=== PATIENT | male | born 1955 | race Caucasian/White ===

== ENCOUNTER 2018-03-26 17:18 | Observation (INO) ==
--- NOTE | 2018-03-26 17:40 | ED ---
HPI General Chief Complaint: Stroke Alert Stated Complaint: partial lost of vision Time Seen by Provider: 03/26/18 17:25 Source: patient, family and EMS Mode of arrival: EMS Limitations: no limitations History of Present Illness HPI Narrative: The patient is a 63-year-old male with diabetes that was brought in as a stroke alert for left eye blurry vision. 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 He lives recently had Lasik surgery and was also diagnosed with diabetic retinopathy. Patient states that he woke up this morning and around 830 he noticed that his left eye was very blurry. He does wear corrective glasses and his vision was impaired even with the glasses on. He stated that it was persisted all day but by the time he was brought in here by EMS his symptoms have improved slightly. Patient denies any other complaints. His hemoglobin A1c is 7.8 and on arrival his glucose was elevated above 300. Stroke alert was initiated in the ED. Onset (ago): unknown Last Observed Normal: 23:00 Location: Reports other (left eye blurryness) History of same: No Severity: moderate Relieving factors: time Context: Reports sudden onset On Anticoagulants: No Associated symptoms: Reports denies other symptoms Treatments Prior to Arrival: Reports none Related Data Home Medications Medication Instructions Recorded Confirmed amlodipine 5 mg PO DAILY 03/26/18 03/26/18 aspirin 81 mg PO DAILY 03/26/18 03/26/18 atorvastatin 10 mg PO DAILY 03/26/18 03/26/18 glimepiride 2 mg PO QAM 03/26/18 03/26/18 metformin 1,000 mg PO BID 03/26/18 03/26/18 multivitamin 1 tab PO DAILY 03/26/18 03/26/18 om 0-I-dowzc-duc-zkvwl-cmj-lip 1 cap PO DAILY 03/26/18 03/26/18 [[place] 3-6-9] omeprazole 20 mg PO DAILY 03/26/18 03/26/18 Allergies Allergy/AdvReac Type Severity Reaction Status Date / Time prednisone Allergy Intermediate unknown Verified 03/26/18 17:36 Review of Systems ROS: all other systems reviewed are negative Eyes Reports other (blurry vision) PMFSH History History Provided By: Patient Medical History Medical History Anemia (Acute) Diabetes (Acute) Hx of completed stroke (Acute) Hyperlipidemia (Acute) Hypertension (Acute) Right sided numbness (Acute) Surgical History Surgical History History of bone marrow biopsy (Acute) History of carpal tunnel surgery (Acute) Family History Family History Other Diabetes mellitus Liver cancer Social History Social History Second Hand Smoke Exposure: No Smoking Status: Never smoker How Often Do You Have a Drink Containing Alcohol: 2 to 4 times a month Recent Travel in [facility] within the Last 8 Weeks: No Recent Out of Country Travel within the Last 8 Weeks: No Exam Narrative Exam Narrative: GENERAL: Alert and oriented in no distress. well nourished well developed SKIN: Focused skin assessment warm/dry. HEAD: Atraumatic. Normocephalic. EYES: Pupils equal and round. No scleral icterus. No injection or drainage. ENT: No nasal bleeding or discharge. Mucous membranes pink and moist. NECK: Trachea midline. No JVD. CARDIOVASCULAR: Regular rate and rhythm. No murmur appreciated. RESPIRATORY: No accessory muscle use. Clear to auscultation. Breath sounds equal bilaterally. GASTROINTESTINAL: Abdomen soft, non-tender, nondistended. Hepatic and splenic margins not palpable. MUSCULOSKELETAL: No obvious deformities. No clubbing. No cyanosis. No edema. PSYCHIATRIC: Appropriate mood and affect; insight and judgment normal. Neuro General: alert, awake and oriented x3 Course Consultations Consultation #1: Dr Carmona neurology on-call was notified recommends obtaining CT angio of head and neck as well as a dry CT head and call back with results if abnormal. Time: 17:35 Initial Documented Vital Signs Temperature 98.7 F 03/26/18 17:25 Pulse Rate 92 H 03/26/18 17:25 Respiratory Rate 15 03/26/18 17:25 Blood Pressure 212/100 H 03/26/18 17:25 Pulse Oximetry 100 03/26/18 17:25 Last Documented Vital Signs Temperature 98.7 F 03/26/18 17:25 Pulse Rate 79 03/27/18 06:16 Respiratory Rate 12 03/27/18 06:16 Blood Pressure 162/88 H 03/27/18 06:16 Pulse Oximetry 98 03/27/18 06:16 Critical Care Time Critical Care Time: Yes Total Critical Care Time: 30 Attestation: Aggregate critical care time was 30 minutes. Time to perform other separately billable procedures was not included in the critical care time. My time did not include minutes spent treating any other patients simultaneously or on activities that did not directly contribute to the patient's treatment. The services I provided to this patient were to treat and/or prevent clinically significant deterioration that could result in: Permanent disability and or I provided critical care services requiring my management, as noted below: Chart data review, documentation time, medication orders and management, vital sign assessments/reviewing monitor data, ordering and reviewing lab tests, ordering and interpreting/reviewing x-rays and diagnostic studies, care of the patient and discussion of the patient with the admitting physicians. NIH Stroke Scale NIHSS Time Completed NIHSS Time Completed: 17:30 NIH Stroke Scale Level of Consciousness: 0-Alert Orientation Questions: 0-Answers both correct Responds to Commands: 0-Both tasks correct Gaze Eye Movement: 0-Horizontal movement WNL Visual Gaming: 0-No visual field defect Facial Movement: 0-Normal Motor Functions Arm LEFT: 0-No drift Motor Functions Arm RIGHT: 0-No drift Motor Functions Leg LEFT: 0-No drift Motor Functions Leg RIGHT: 0-No drift Limb Ataxia: 0-No ataxia Sensory Loss: 0-No sensory loss Best Language: 0-Normal Articulation: 0-Normal Extinction or Inattention Sensory: 0-Absent Total: 0 Medical Decision Making MDM Narrative Medical decision making narrative: Patient with symptoms of visual disturbance on the left eye and negative for scans for acute intracranial process. His symptoms may be secondary to his diabetic retinopathy and the recent surgery that he had. Neurology was consulted. Stroke nurse coordinator present at bedside. Family aware of findings. Patient was admitted for further evaluation. Medical Screen Exam Complete: Yes Emergency Medical Condition: Yes Medical Records Medical records reviewed: Yes I reviewed the patient's medical records. Lab Data Lab results reviewed: Yes I reviewed the patient's lab results. Result diagrams: 03/26/18 17:30 03/26/18 17:30 Lab Results 03/26/18 03/26/18 03/26/18 Range/Units 17:30 17:30 17:30 WBC 8.1 (4.0-11.0) th/mm3 RBC 3.88 L (4.50-5.90) mil/mm3 Hgb 12.8 L (13.0-17.0) gm/dL POC Hgb (Calc) 12.6 L (13.0-17.0) g/dL Hct 36.6 L (39.0-51.0) % POC Hct 37.0 L (39-51.0) % MCV 94.3 (80.0-100.0) fL MCH 33.0 (27.0-34.0) pg MCHC 35.0 (32.0-36.0) % RDW 13.4 (11.6-17.2) % Plt Count 227 (150-450) th/mm3 MPV 10.3 (7.0-11.0) fL Neut % (Auto) 54.6 (16.0-70.0) % Lymph % (Auto) 28.4 (9.0-44.0) % [place] % (Auto) 13.1 H (0.0-8.0) % Eos % (Auto) 3.0 (0.0-4.0) % Baso % (Auto) 0.9 (0.0-2.0) % Neut # (Auto) 4.4 (1.8-7.7) th/mm3 Lymph # (Auto) 2.3 (1.0-4.8) th/mm3 [place] # (Auto) 1.1 H (0.0-0.9) th/mm3 Eos # (Auto) 0.2 (0.0-0.4) th/mm3 Baso # (Auto) 0.1 (0.0-0.2) th/mm3 WBC Differential . Differential Comment Auto diff final PT 10.2 (9.8-11.6) sec INR 1.0 Ratio APTT 24.1 (23.4-31.7) sec POC Sodium 144 (137-144) mmol/L Sodium 143 (136-145) meq/L POC Potassium 4.6 (3.6-5.0) mmol/L Potassium 4.5 (3.5-5.1) meq/L POC Chloride 105 (102-111) mmol/L Chloride 108 H (98-107) meq/L Carbon Dioxide 24.3 (21.0-32.0) meq/L Anion Gap 11 (5-15) meq/L POC BUN 27 H (5-21) mg/dL BUN 25 H (7-18) mg/dL Creatinine 1.36 H (0.60-1.30) mg/dL POC Creatinine 1.2 (0.6-1.3) mg/dL Estimated GFR 53 L (>89) mL/min POC Glucose 270 H (68-110) mg/dL Random Glucose 275 H (74-106) mg/dL Calcium 9.2 (8.5-10.1) mg/dL Total Creatine Kinase 127 (39-308) U/L CK-MB (CK-2) 5.0 H (0.5-3.6) ng/mL Troponin I Less than 0.02 L (0.02-0.05) ng/mL Imaging Data Radiologist's impression: Head MRI 03/26/18 00:00 CONCLUSION: 1. No evidence of acute stroke. 2. Small bilateral thalamic lacunar infarcts. Head MRA 03/26/18 00:00 CONCLUSION: 1. Negative MRA [place] ([place]) non contrast. Head CT 03/26/18 17:29 CONCLUSION: Multiple lacunar infarcts the left thalamus, likely old. No acute intracranial findings identified. Report was called by Dr. Fitzgerald to Dr. Cheng at [phone]. Head CTA 03/26/18 17:29 CONCLUSION: Focal atherosclerotic disease of the mid right SEAMER ELASTIC BAND. No proximal high-grade stenosis or occlusion. Report was called by Dr. Fitzgerald to Dr. Salguero at [phone]] Neck CTA 03/26/18 17:29 CONCLUSION: 1. Negative CTA of the carotids. ECG Data EKG Prior to Arrival: No Attestation: I personally reviewed and interpreted this ECG as follows: Interpretation: Sinus rhythm 85 bpm. Intraventricular conduction delay noted. VT interval 175 ms. QTc [address]-T wave abnormalities. No signs of acute ischemia. Discharge Plan Discharge Disposition Patient Disposition: 30 Still Patient Discharge Condition Condition: Stable Discharge Details Diagnosis: Transient cerebral ischemia, Diabetic retinopathy Physicians Team ED Provider: Sean Cheng Primary Care Provider: Primary Care Brie Markham Attending Provider: Karson Field Other Providers: Bakari Deng ; Luanne Murphy Discharge Interventions Interventions: Vital Signs Last Done: 03/26/18 19:06 Status ED Status: Admitted Observation Patient
[2018-03-26 17:41] VITALS: TEMP 98.7
--- NOTE | 2018-03-26 17:51 | CT ---
EXAM DATE: 03/26/2018 5:44 PM EST AGE/SEX: 63 years / Male INDICATIONS: Stroke alert, left eye blurriness. CLINICAL DATA: This is the patient's initial encounter. Patient reports that signs and symptoms have been present for 1 day and indicates a pain score of Nonresponsive. MEDICAL/SURGICAL HISTORY: Non-responsive. Non-responsive. RADIATION DOSE: 52.83 CTDI (mGy) COMPARISON: No prior exams available for comparison. TECHNIQUE: CT of the head without contrast. Using automated exposure control and adjustment of the mA and/or kV according to patient size, radiation dose was kept as low as reasonably achievable to ob tain optimal diagnostic quality images. DICOM format image data is available electronically for revi ew and comparison. FINDINGS: Cerebrum: Multiple lacunar infarcts in the left thalamus likely old. The ventricles are normal for a ge. No evidence of midline shift, mass lesion, hemorrhage or acute infarction. No extraaxial fluid collections are seen. Posterior Fossa: The cerebellum and brainstem are intact. The 4th ventricle is midline. The cerebe llopontine angle is unremarkable. Extracranial: The visualized portion of the orbits is intact. Skull: The calvaria is intact. No evidence of skull fracture. CONCLUSION: Multiple lacunar infarcts the left thalamus, likely old. No acute intracranial findings identified. Report was called by Dr. Fitzgerald to Dr. Cheng at [phone]. Electronically signed by: Keanu Fitzgerald MD 03/26/2018 5:50 PM EST
[2018-03-26] MEDS ORDERED: Aspirin 325 MG Tablet PO ONE (17:53)
[2018-03-26 18:10] LABS: Baso # (Auto) 0.1 th/mm3 (0.0-0.2); Baso % (Auto) 0.9 % (0.0-2.0); Eos # (Auto) 0.2 th/mm3 (0.0-0.4); Hematocrit 36.6 % (39.0-51.0); Hemoglobin 12.8 gm/dL (13.0-17.0); Lymph # (Auto) 2.3 th/mm3 (1.0-4.8); Lymph % (Auto) 28.4 % (9.0-44.0); Mean Corpuscular Volume 94.3 fL (80.0-100.0); Mean Platelet Volume 10.3 fL (7.0-11.0); Mono # (Auto) 1.1 th/mm3 (0.0-0.9); Mono % (Auto) 13.1 % (0.0-8.0); Neut # (Auto) 4.4 th/mm3 (1.8-7.7); Neut % (Auto) 54.6 % (16.0-70.0); Platelet Count 227 th/mm3 (150-450); Red Blood Count 3.88 mil/mm3 (4.50-5.90); Red Cell Distribution Width 13.4 % (11.6-17.2); White Blood Count 8.1 th/mm3 (4.0-11.0)
--- NOTE | 2018-03-26 18:18 | CT ---
EXAM DATE: 03/26/2018 6:04 PM EST AGE/SEX: 63 years / Male INDICATIONS: Stroke alert, left eye blurriness. CLINICAL DATA: This is the patient's initial encounter. Patient reports that signs and symptoms have been present for 1 day and indicates a pain score of Nonresponsive. MEDICAL/SURGICAL HISTORY: Non-responsive. Non-responsive. RADIATION DOSE: 9.74 CTDI (mGy) ; Combined studies COMPARISON: No prior exams available for comparison. TECHNIQUE: Volumetric scanning was performed using a multi-row detector CT scanner during bolus infu robert of 80 ml Visipaque 320 (iodixanol) nonionic water-soluble contrast as a cumulative dose for mul tiple exams. The data was post processed with a variety of visualization algorithms including full volume maximum intensity projection, multi-planar sliding thin slab reformation, curved planar reform ation, and surface rendering techniques. Using automated exposure control and adjustment of the mA a nd/or kV according to patient size, radiation dose was kept as low as reasonably achievable to obtain optimal diagnostic quality images. DICOM format image data is available electronically for review a nd comparison. FINDINGS: There is excellent visualization of the major intracranial arteries out to the second-order branch ve ssels. Focal atherosclerotic disease of the mid right GATE ATTENDANT. There is no evidence for aneurysm, vessel truncation or stenosis, and no evidence for vascular malformation. CONCLUSION: Focal atherosclerotic disease of the mid right GATE ATTENDANT. No proximal high-grade stenosis or occlusion. Report was called by Dr. Fitzgerald to Dr. Salguero at [phone]] Electronically signed by: Keanu Fitzgerald MD 03/26/2018 6:17 PM EST
[2018-03-26 18:21] LABS: Activated Partial Thrombo Time 24.1 sec (23.4-31.7); Prothrombin Time 10.2 sec (9.8-11.6)
[2018-03-26 18:46] LABS: Anion Gap 11 meq/L (5-15); Blood Urea Nitrogen 25 mg/dL (7-18); Calcium 9.2 mg/dL (8.5-10.1); Carbon Dioxide 24.3 meq/L (21.0-32.0); Chloride 108 meq/L (98-107); Glomerular Filtration Rate 53 mL/min (>89); Glucose,Random 275 mg/dL (74-106); Potassium 4.5 meq/L (3.5-5.1); Sodium 143 meq/L (136-145)
[2018-03-26 18:50] LABS: Creatine Kinase 127 U/L (39-308)
--- NOTE | 2018-03-26 19:08 | CT ---
EXAM DATE: 03/26/2018 6:45 PM EST AGE/SEX: 63 years / Male INDICATIONS: Stroke alert, left eye blurriness. CLINICAL DATA: This is the patient's initial encounter. Patient reports that signs and symptoms have been present for 1 day and indicates a pain score of Nonresponsive. MEDICAL/SURGICAL HISTORY: Non-responsive. Non-responsive. RADIATION DOSE: 9.74 CTDI (mGy) ; Combined studies COMPARISON: No prior exams available for comparison. TECHNIQUE: Volumetric scanning was performed using a multirow detector CT scanner during bolus infus ion of 80 ml Visipaque 320 (iodixanol) nonionic water-soluble contrast as a cumulative dose for mult iple exams. The data was postprocessed with a variety of visualization algorithms including full-vo lume maximum intensity projection, multiplanar sliding thin-slab reformation, curved-planar reformati on, and surface-rendering techniques. Using automated exposure control and adjustment of the mA and/ or kV according to patient size, radiation dose was kept as low as reasonably achievable to obtain op timal diagnostic quality images. DICOM format image data is available electronically for review and comparison. FINDINGS: Aortic Arch: There is a three-vessel origin of the great vessels from the aorta. No evidence of ost ial narrowing Right Carotid: The common carotid artery is intact. The carotid bulb has a normal configuration wit hout ulceration or narrowing. The internal carotid artery lumen is smooth without stenosis. The ext ernal carotid artery is intact. Left Carotid: The common carotid artery is intact. The carotid bulb has a normal configuration with out ulceration or narrowing. The internal carotid artery lumen is smooth without stenosis. The exte rnal carotid artery is intact. Vertebrals: The vertebral arteries have a symmetric diameter. No stenotic lesions are seen. Percent stenosis is calculated using the diameter of the stenotic region over the diameter of the nor mal distal internal carotid artery. CONCLUSION: 1. Negative CTA of the carotids. Electronically signed by: Hitesh Person MD 03/26/2018 7:07 PM EST
[2018-03-26] MEDS ORDERED: Dextrose 50% in Water 50 ML Vial IV.PUSH PRN (20:55)
--- NOTE | 2018-03-26 21:46 | P.HP ---
History of Present Illness Service: [facility] Primary Care Physician: No Primary Care Physician History of Present Illness: 63-year-old male with a past medical history significant for diabetes mellitus, previous CVA, hypertension, hyperlipidemia and anemia presents to the emergency department for the evaluation of visual disturbances. The patient reports that upon waking this morning he had difficulty seeing out of his left eye. He reports that it was as if a black curtain was obstructing his upper visual field. He also reports blurry vision in that eye. He has a history of diabetic retinopathy and is status post laser treatments and injections bilaterally, last completed on 02/18/18. The patient states the black curtain has lifted but complains of persistent blurriness. 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 He had no acute changes in strength today. No slurred speech. No facial droop. No fever/chills. No chest pain or shortness of breath. No abdominal pain. No nausea/vomiting/diarrhea. Review of Systems All other systems reviewed negative except as stated in HPI PMFSH - History History Provided By: Patient - Medical History Medical History: Medical History (Last Updated 03/26/18 @ 21:30 by Leena Blanco MD) Anemia Diabetes Hx of completed stroke Hyperlipidemia Hypertension Right sided numbness - Surgical History Surgical History: Surgical History (Last Updated 03/26/18 @ 21:30 by Leena Blanco MD) History of bone marrow biopsy History of carpal tunnel surgery - Family History Family History: Family History (Last Updated 03/26/18 @ 21:31 by Leena Blanco MD) Other Diabetes mellitus Liver cancer - Social History I have reviewed the patient's Social History: Yes - Tobacco History Second Hand Smoke Exposure: No Tobacco Use In Past 30 Days: No Smoking Status: Never smoker - Alcohol History How Often Do You Have a Drink Containing Alcohol: 2 to 4 times a month - Travel History Recent Travel in the [place] Within the Last 8 Weeks: No Recent Travel Out of the Country Within the Last 8 Weeks: No - Immunization History Tetanus Immunization: Unsure Medications and Allergies Active Medications: Active Medications Amlodipine Besylate (Norvasc) 5 mg PO DAILY PABLITO Aspirin (Aspirin) 325 mg PO DAILY PABLITO Atorvastatin Calcium (Lipitor) 10 mg PO DAILY PABLITO Dextrose (D50w Vial) 50 ml IV.PUSH UNSCH PRN PRN Reason: PER HYPOGLYCEMIA PROTOCOL Glucagon (Glucagon Inj) 1 mg OTHER PRN PRN PRN Reason: for Hypoglycemia Protocol Sodium Chloride (Ns Inj) 1,000 mls @ 70 mls/hr IV.CONT .[id number] PABLITO Insulin Aspart (Novolog Insulin Correctional Sugar Inj) 0 unit SQ ACHS PABLITO; Protocol Pantoprazole Sodium (Protonix) 20 mg PO DAILY PABLITO Sodium Chloride (Ns Flush) 2 ml IV.FLUSH PRN PRN PRN Reason: FLUSH AFTER USING IV ACCESS Allergies Allergy/AdvReac Type Severity Reaction Status Date / Time prednisone Allergy Intermediate unknown Verified 03/26/18 17:36 Home Medications Medication Instructions Recorded Confirmed Type amlodipine 5 mg PO DAILY 03/26/18 03/26/18 History aspirin 81 mg PO DAILY 03/26/18 03/26/18 History atorvastatin 10 mg PO DAILY 03/26/18 03/26/18 History glimepiride 2 mg PO QAM 03/26/18 03/26/18 History metformin 1,000 mg PO BID 03/26/18 03/26/18 History multivitamin 1 tab PO DAILY 03/26/18 03/26/18 History om 1-K-nxixh-ble-deduu-yca-lip 1 cap PO DAILY 03/26/18 03/26/18 History [[place] 3-6-9] omeprazole 20 mg PO DAILY 03/26/18 03/26/18 History Exam Vital signs: Vital Signs 03/26/18 17:25 03/26/18 17:35 03/26/18 17:42 Temperature 98.7 F Pulse Rate 92 H Respiratory Rate 15 Blood Pressure 212/100 H Pulse Oximetry 100 99 100 03/26/18 17:45 03/26/18 17:47 03/26/18 19:06 Temperature Pulse Rate 85 85 Respiratory Rate 15 20 Blood Pressure 139/76 172/81 H Pulse Oximetry 99 97 Intake & Output 03/26/18 03/26/18 03/27/18 06:59 18:59 06:59 Weight 84.9 kg Narrative: Gen.: No acute distress Head: Normocephalic. Atraumatic. EENT: Pupils equal round and reactive to light. Nose without drainage. Airway intact. Throat without injection. Cardiovascular: Regular rate and rhythm. No murmurs, rubs or gallops. Respiratory: Lungs clear to auscultation bilaterally. No wheezes or rhonchi. Abdomen: Soft, nontender, nondistended. No peritoneal signs. Musculoskeletal: No gross deformities. No edema. Skin: No obvious rashes or erythema. Neuro: Patient reports numbness/tingling in right upper and lower extremity. Cranial nerves II through XII intact. Strength 5/5. Results - Labs CBC & Chem 7: 03/26/18 17:30 03/26/18 17:30 Labs: Laboratory Results - last 24 hr 03/26/18 03/26/18 03/26/18 17:30 17:30 17:30 WBC 8.1 RBC 3.88 L Hgb 12.8 L POC Hgb (Calc) 12.6 L Hct 36.6 L POC Hct 37.0 L MCV 94.3 MCH 33.0 MCHC 35.0 RDW 13.4 Plt Count 227 MPV 10.3 Neut % (Auto) 54.6 Lymph % (Auto) 28.4 [place] % (Auto) 13.1 H Eos % (Auto) 3.0 Baso % (Auto) 0.9 Neut # (Auto) 4.4 Lymph # (Auto) 2.3 [place] # (Auto) 1.1 H Eos # (Auto) 0.2 Baso # (Auto) 0.1 WBC Differential . Differential Comment Auto diff final PT 10.2 INR 1.0 APTT 24.1 POC Sodium 144 Sodium 143 POC Potassium 4.6 Potassium 4.5 POC Chloride 105 Chloride 108 H Carbon Dioxide 24.3 Anion Gap 11 POC BUN 27 H BUN 25 H Creatinine 1.36 H POC Creatinine 1.2 Estimated GFR 53 L POC Glucose 270 H Random Glucose 275 H Calcium 9.2 Total Creatine Kinase 127 CK-MB (CK-2) 5.0 H Troponin I Less than 0.02 L - Imaging Impressions Head CT 03/26/18 17:29 CONCLUSION: Multiple lacunar infarcts the left thalamus, likely old. No acute intracranial findings identified. Report was called by Dr. Fitzgerald to Dr. Cheng at [phone]. Head CTA 03/26/18 17:29 CONCLUSION: Focal atherosclerotic disease of the mid right LOCKER PLANT ATTENDANT. No proximal high-grade stenosis or occlusion. Report was called by Dr. Fitzgerald to Dr. Salguero at [phone]] Neck CTA 03/26/18 17:29 CONCLUSION: 1. Negative CTA of the carotids. Caprini VTE Risk Assessment Caprini VTE Risk Assessment: Moderate/High Risk (score >= 2) Caprini Risk Assessment Model: Point Value = 1 Point Value = 2 Point Value = 3 Point Value = 5 Age 41-60 Minor surgery BMI > 25 kg/m2 Swollen legs Varicose veins or History of unexplained or recurrent spontaneous Oral contraceptives or hormone replacement Sepsis (< 1 month) Serious lung disease, including pneumonia (< 1 month) Abnormal pulmonary function Acute myocardial infarction Congestive heart failure (< 1 month) History of inflammatory bowel disease Medical patient at bed rest Age 61-74 Arthroscopic surgery Major open surgery (> 45 min) Laparoscopic surgery (> 45 min) Malignancy Confined to bed (> 72 hours) Immobilizing plaster cast Central venous access Age >= 75 History of VTE Family history of VTE Factor V Leiden Prothrombin [id number] Lupus anticoagulant Anticardiolipin antibodies Elevated serum homocysteine Heparin-induced thrombocytopenia Other congenital or acquired thrombophilia Stroke (< 1 month) Elective arthroplasty Hip, pelvis, or leg fracture Acute spinal cord injury (< 1 month) Prophylaxis Regimen: Total Risk Factor Score Risk Level Prophylaxis Regimen 0-1 Low Early ambulation 2 Moderate Order ONE of the following: *Sequential Compression Device (SCD) *Heparin 5000 units SQ BID 3-4 Higher Order ONE of the following medications: *Heparin 5000 units SQ TID *Enoxaparin/Lovenox 40 mg SQ daily (WT < 150 kg, CrCl > 30 mL/min) *Enoxaparin/Lovenox 30 mg SQ daily (WT < 150 kg, CrCl > 10-29 mL/min) *Enoxaparin/Lovenox 30 mg SQ BID (WT < 150 kg, CrCl > 30 mL/min) AND/OR *Sequential Compression Device (SCD) 5 or more Highest Order ONE of the following medications: *Heparin 5000 units SQ TID (Preferred with Epidurals) *Enoxaparin/Lovenox 40 mg SQ daily (WT < 150 kg, CrCl > 30 mL/min) *Enoxaparin/Lovenox 30 mg SQ daily (WT < 150 kg, CrCl > 10-29 mL/min) *Enoxaparin/Lovenox 30 mg SQ BID (WT < 150 kg, CrCl > 30 mL/min) AND *Sequential Compression Device (SCD) Assessment and Plan - Plan Assessment/Plan: 1. Visual disturbance/history of CVA Head CT showed multiple old lacunar infarcts in the left thalamus without acute intracranial findings Head CTA shows focal atherosclerotic disease of the mid right LOCKER PLANT ATTENDANT without high- grade stenosis or occlusion Neck CTA negative MRI pending Neurology consulted, appreciate recommendations Ophthalmology consulted Aspirin 2. Diabetes mellitus Holding home glimepiride and metformin Sliding-scale insulin Monitor blood glucose 3. Hypertension/hyperlipidemia Continue home medications 4. Renal insufficiency Patient reports that recent lab work with his primary care provider showed a new renal insufficiency Creatinine 1.36, no recent baseline for comparison Monitor renal function FEN N.p.o. Electrolytes: Monitor and replete as needed NS at 70 cc/hour
--- NOTE | 2018-03-26 21:47 | MR ---
EXAM DATE: 03/26/2018 9:40 PM EST AGE/SEX: 63 years / Male INDICATIONS: TIA. Left eye weakness. CLINICAL DATA: This is the patient's initial encounter. Patient reports that signs and symptoms have been present for 1 day and indicates a pain score of 1/10. MEDICAL/SURGICAL HISTORY: Hypertension. Prior stroke that caused right side weakness/tingling. . Eye sx, Wrist sx. COMPARISON: No prior exams available for comparison. TECHNIQUE: 3D trap-sd-nghepo MRA was performed. Source images, multiplanar STS MIP, and 3D volum e MIP reconstructions were reviewed. FINDINGS: There is excellent visualization of the major intracranial arteries out to the second-order branch ve ssels. There is no evidence for aneurysm, vessel truncation or stenosis, and no evidence for vascula r malformation. CONCLUSION: 1. Negative MRA [place] ([place]) non contrast. Electronically signed by: Garrett Morales MD 03/26/2018 9:46 PM EST
--- NOTE | 2018-03-26 21:47 | MR ---
EXAM DATE: 03/26/2018 9:42 PM EST AGE/SEX: 63 years / Male INDICATIONS: TIA. Left eye weakness. CLINICAL DATA: This is the patient's initial encounter. Patient reports that signs and symptoms have been present for 1 day and indicates a pain score of 1/10. MEDICAL/SURGICAL HISTORY: Hypertension. Prior stroke that caused right sided numbness. . Eye s x, Wrist sx. COMPARISON: No prior exams available for comparison. TECHNIQUE: Multiplanar, multisequence examination of the brain was performed without contrast. FINDINGS: Cerebrum: The ventricles are normal for age. No evidence of midline shift, mass lesion, hemorrhage or acute infarction. Small lacunar infarcts in the thalamus bilaterally. No extraaxial fluid collect ions are seen. The pituitary gland and suprasellar cistern are normal in configuration. White Matter: No significant signal abnormalities are seen in the white matter. Posterior Fossa: The cerebellum and brainstem are intact. The 4th ventricle is midline. The cerebel lopontine angle is unremarkable. The cerebellar tonsils are normal in position. Diffusion Imaging: No focal areas of restricted diffusion are seen. No evidence of acute infarction . Extracranial: The visualized portions of the orbits and paranasal sinuses are unremarkable. CONCLUSION: 1. No evidence of acute stroke. 2. Small bilateral thalamic lacunar infarcts. Electronically signed by: Hitesh Person MD 03/26/2018 9:46 PM EST
[2018-03-26] MEDS: Sod Chloride 0.9% Inj 1,000 ML IV.CONT SCH (23:31)
[2018-03-27] MEDS: Insulin NovoLOG Aspart Correctional Sugar Inj SQ SCH ×3 (01:38→12:57)
--- NOTE | 2018-03-27 06:58 | P.CONNEU ---
History of Present Illness Service: Neurology Primary Care Provider: No Primary Care Physician [facility] - History History Provided By: Patient - Medical History Medical History: Medical History (Last Updated 03/26/18 @ 21:30 by Leena Blanco MD) Anemia Diabetes Hx of completed stroke Hyperlipidemia Hypertension Right sided numbness - Surgical History Surgical History: Surgical History (Last Updated 03/26/18 @ 21:30 by Leena Blanco MD) History of bone marrow biopsy History of carpal tunnel surgery - Family History Family History: Family History (Last Updated 03/26/18 @ 21:31 by Leena Blanco MD) Other Diabetes mellitus Liver cancer - Tobacco History Second Hand Smoke Exposure: No Tobacco Use In Past 30 Days: No Smoking Status: Never smoker - Alcohol History How Often Do You Have a Drink Containing Alcohol: 2 to 4 times a month - Travel History Recent Travel in the [facility] Within the Last 8 Weeks: No Recent Travel Out of the Country Within the Last 8 Weeks: No - Immunization History Tetanus Immunization: Unsure Medications and Allergies Active Medications: Active Medications Amlodipine Besylate (Norvasc) 5 mg PO DAILY [facility] Aspirin (Aspirin) 325 mg PO DAILY [facility] Atorvastatin Calcium (Lipitor) 10 mg PO DAILY [facility] Dextrose (D50w Vial) 50 ml IV.PUSH UNSCH PRN PRN Reason: PER HYPOGLYCEMIA PROTOCOL Glucagon (Glucagon Inj) 1 mg OTHER PRN PRN PRN Reason: for Hypoglycemia Protocol Sodium Chloride (Ns Inj) 1,000 mls @ 70 mls/hr IV.CONT .[id number] [facility] Last Admin: 03/26/18 23:31 Dose: 70 mls/hr Insulin Aspart (Novolog Insulin Correctional Sugar Inj) 0 unit SQ ACHS [facility]; Protocol Last Admin: 03/27/18 01:38 Dose: Not Given Pantoprazole Sodium (Protonix) 20 mg PO DAILY [facility] Sodium Chloride (Ns Flush) 2 ml IV.FLUSH PRN PRN PRN Reason: FLUSH AFTER USING IV ACCESS Allergies Allergy/AdvReac Type Severity Reaction Status Date / Time prednisone Allergy Intermediate unknown Verified 03/26/18 17:36 Home Medications Medication Instructions Recorded Confirmed Type amlodipine 5 mg PO DAILY 03/26/18 03/26/18 History aspirin 81 mg PO DAILY 03/26/18 03/26/18 History atorvastatin 10 mg PO DAILY 03/26/18 03/26/18 History glimepiride 2 mg PO QAM 03/26/18 03/26/18 History metformin 1,000 mg PO BID 03/26/18 03/26/18 History multivitamin 1 tab PO DAILY 03/26/18 03/26/18 History om 2-Q-duqwm-pcd-oclbi-enj-lip 1 cap PO DAILY 03/26/18 03/26/18 History [[place] 3-6-9] omeprazole 20 mg PO DAILY 03/26/18 03/26/18 History Exam Vital signs: Vital Signs 03/26/18 17:25 03/26/18 17:35 03/26/18 17:42 Temperature 98.7 F Pulse Rate 92 H Respiratory Rate 15 Blood Pressure 212/100 H Pulse Oximetry 100 99 100 03/26/18 17:45 03/26/18 17:47 03/26/18 19:06 Temperature Pulse Rate 85 85 Respiratory Rate 15 20 Blood Pressure 139/76 172/81 H Pulse Oximetry 99 97 03/26/18 23:31 03/27/18 02:47 03/27/18 06:16 Temperature Pulse Rate 85 79 Respiratory Rate 16 12 Blood Pressure 146/82 H 162/88 H Pulse Oximetry 98 97 98 Intake & Output 03/26/18 03/26/18 03/27/18 06:59 18:59 06:59 Weight 84.9 kg Results - Labs CBC & Chem 7: 03/26/18 17:30 03/26/18 17:30 Labs: Laboratory Results - last 24 hr 03/26/18 03/26/18 03/26/18 17:30 17:30 17:30 WBC 8.1 RBC 3.88 L Hgb 12.8 L POC Hgb (Calc) 12.6 L Hct 36.6 L POC Hct 37.0 L MCV 94.3 MCH 33.0 MCHC 35.0 RDW 13.4 Plt Count 227 MPV 10.3 Neut % (Auto) 54.6 Lymph % (Auto) 28.4 [place] % (Auto) 13.1 H Eos % (Auto) 3.0 Baso % (Auto) 0.9 Neut # (Auto) 4.4 Lymph # (Auto) 2.3 [place] # (Auto) 1.1 H Eos # (Auto) 0.2 Baso # (Auto) 0.1 WBC Differential . Differential Comment Auto diff final PT 10.2 INR 1.0 APTT 24.1 POC Sodium 144 Sodium 143 POC Potassium 4.6 Potassium 4.5 POC Chloride 105 Chloride 108 H Carbon Dioxide 24.3 Anion Gap 11 POC BUN 27 H BUN 25 H Creatinine 1.36 H POC Creatinine 1.2 Estimated GFR 53 L POC Glucose 270 H Random Glucose 275 H Calcium 9.2 Total Creatine Kinase 127 CK-MB (CK-2) 5.0 H Troponin I Less than 0.02 L - Imaging Impressions Head MRI 03/26/18 00:00 CONCLUSION: 1. No evidence of acute stroke. 2. Small bilateral thalamic lacunar infarcts. Head MRA 03/26/18 00:00 CONCLUSION: 1. Negative MRA Cow ([place] [facility] [place]) non contrast. Head CT 03/26/18 17:29 CONCLUSION: Multiple lacunar infarcts the left thalamus, likely old. No acute intracranial findings identified. Report was called by Dr. Fitzgerald to Dr. Cheng at 1747. Head CTA 03/26/18 17:29 CONCLUSION: Focal atherosclerotic disease of the mid right TABLE FILLER. No proximal high-grade stenosis or occlusion. Report was called by Dr. Fitzgerald to Dr. Salguero at [phone]] Neck CTA 03/26/18 17:29 CONCLUSION: 1. Negative CTA of the carotids. Review/Management - Diagnosis (1) Diabetic retinopathy Code(s): E11.319 - Type 2 diabetes mellitus with unspecified diabetic retinopathy without macular edema Status: Acute Current Visit: Yes - Review/Management Plan: dm retinopathy stroke w/u negative for acute stroke recs optho eval stroke risk factor reduction d/c from neuro
[2018-03-27 07:45] LABS: Baso # (Auto) 0.1 th/mm3 (0.0-0.2); Baso % (Auto) 1.2 % (0.0-2.0); Eos # (Auto) 0.3 th/mm3 (0.0-0.4); Hematocrit 33.1 % (39.0-51.0); Hemoglobin 11.4 gm/dL (13.0-17.0); Lymph # (Auto) 2.4 th/mm3 (1.0-4.8); Lymph % (Auto) 29.3 % (9.0-44.0); Mean Corpuscular HGB Conc 34.5 % (32.0-36.0); Mean Corpuscular Hemoglobin 32.2 pg (27.0-34.0); Mean Corpuscular Volume 93.3 fL (80.0-100.0); Mean Platelet Volume 10.1 fL (7.0-11.0); Mono # (Auto) 1.1 th/mm3 (0.0-0.9); Mono % (Auto) 13.6 % (0.0-8.0); Neut # (Auto) 4.2 th/mm3 (1.8-7.7); Neut % (Auto) 51.9 % (16.0-70.0); Platelet Count 202 th/mm3 (150-450); Red Blood Count 3.55 mil/mm3 (4.50-5.90); Red Cell Distribution Width 13.7 % (11.6-17.2); White Blood Count 8.1 th/mm3 (4.0-11.0)
[2018-03-27 07:56] VITALS: RESP 18
[2018-03-27 08:02] LABS: Calcium 8.3 mg/dL (8.5-10.1); Carbon Dioxide 25.1 meq/L (21.0-32.0); Potassium 4.2 meq/L (3.5-5.1)
[2018-03-27 08:06] LABS: Chol/HDL Ratio 4.53 Ratio; HDL Cholesterol 33.1 mg/dL (40.0-60.0)
[2018-03-27] MEDS ORDERED: Pantoprazole Sodium 20 MG DR Tablet PO SCH (09:00)
[2018-03-27] MEDS ORDERED: Aspirin 325 MG Tablet PO SCH (09:00)
[2018-03-27] MEDS ORDERED: amLODIPine 5 MG Tablet PO SCH (09:00)
--- NOTE | 2018-03-27 09:18 | P.PN ---
Subjective Interval history: follow up for TIA: pt. seen and examined, awake, alert oriented x3. Left eye upper vision field loss resolved. No double vision, no dizziness, no headache. No focal deficits. Blood pressure stable. Physical Exam Vital signs: Vital Signs 03/26/18 17:25 03/26/18 17:35 03/26/18 17:42 Temperature 98.7 F Pulse Rate 92 H Respiratory Rate 15 Blood Pressure 212/100 H Pulse Oximetry 100 99 100 03/26/18 17:45 03/26/18 17:47 03/26/18 19:06 Temperature Pulse Rate 85 85 Respiratory Rate 15 20 Blood Pressure 139/76 172/81 H Pulse Oximetry 99 97 03/26/18 23:31 03/27/18 02:47 03/27/18 06:16 Temperature Pulse Rate 85 79 Respiratory Rate 16 12 Blood Pressure 146/82 H 162/88 H Pulse Oximetry 98 97 98 03/27/18 07:53 Temperature Pulse Rate 79 Respiratory Rate 18 Blood Pressure 147/76 H Pulse Oximetry 98 Intake & Output 03/26/18 03/27/18 03/27/18 18:59 06:59 18:59 Weight 84.9 kg Narrative: Gen.: No acute distress Head: Normocephalic. Atraumatic. EENT: Pupils equal round and reactive to light. Nose without drainage. Airway intact. Throat without injection. Cardiovascular: Regular rate and rhythm. No murmurs, rubs or gallops. Respiratory: Lungs clear to auscultation bilaterally. No wheezes or rhonchi. Abdomen: Soft, nontender, nondistended. No peritoneal signs. Musculoskeletal: No gross deformities. No edema. Skin: No obvious rashes or erythema. Neuro: Awake, alert oriented x3. No focal deficits. Bilateral upper and lower extremity strength 5 out of 5. Results - Labs CBC & Chem 7: 03/27/18 07:16 03/27/18 07:16 Laboratory Results - last 24 hr 03/26/18 03/26/18 03/26/18 17:30 17:30 17:30 WBC 8.1 RBC 3.88 L Hgb 12.8 L POC Hgb (Calc) 12.6 L Hct 36.6 L POC Hct 37.0 L MCV 94.3 MCH 33.0 MCHC 35.0 RDW 13.4 Plt Count 227 MPV 10.3 Neut % (Auto) 54.6 Lymph % (Auto) 28.4 [place] % (Auto) 13.1 H Eos % (Auto) 3.0 Baso % (Auto) 0.9 Neut # (Auto) 4.4 Lymph # (Auto) 2.3 [place] # (Auto) 1.1 H Eos # (Auto) 0.2 Baso # (Auto) 0.1 WBC Differential . Differential Comment Auto diff final ESR PT 10.2 INR 1.0 APTT 24.1 POC Sodium 144 Sodium 143 POC Potassium 4.6 Potassium 4.5 POC Chloride 105 Chloride 108 H Carbon Dioxide 24.3 Anion Gap 11 POC BUN 27 H BUN 25 H Creatinine 1.36 H POC Creatinine 1.2 Estimated GFR 53 L POC Glucose 270 H Random Glucose 275 H Calcium 9.2 Total Creatine Kinase 127 CK-MB (CK-2) 5.0 H Troponin I Less than 0.02 L C-Reactive Protein Triglycerides Cholesterol LDL Cholesterol, Calc HDL Cholesterol Cholesterol/HDL Ratio 03/27/18 03/27/18 03/27/18 07:16 07:16 07:16 WBC 8.1 RBC 3.55 L Hgb 11.4 L POC Hgb (Calc) Hct 33.1 L POC Hct MCV 93.3 MCH 32.2 MCHC 34.5 RDW 13.7 Plt Count 202 MPV 10.1 Neut % (Auto) 51.9 Lymph % (Auto) 29.3 [place] % (Auto) 13.6 H Eos % (Auto) 4.0 Baso % (Auto) 1.2 Neut # (Auto) 4.2 Lymph # (Auto) 2.4 [place] # (Auto) 1.1 H Eos # (Auto) 0.3 Baso # (Auto) 0.1 WBC Differential . Differential Comment Auto diff final ESR 36 H PT INR APTT POC Sodium Sodium 141 POC Potassium Potassium 4.2 POC Chloride Chloride 108 H Carbon Dioxide 25.1 Anion Gap 8 POC BUN BUN 23 H Creatinine 1.19 POC Creatinine Estimated GFR 62 L POC Glucose Random Glucose 160 H D Calcium 8.3 L D Total Creatine Kinase CK-MB (CK-2) Troponin I C-Reactive Protein Triglycerides 238 H Cholesterol 150 LDL Cholesterol, Calc 69 HDL Cholesterol 33.1 L Cholesterol/HDL Ratio 4.53 03/27/18 07:16 WBC RBC Hgb POC Hgb (Calc) Hct POC Hct MCV MCH MCHC RDW Plt Count MPV Neut % (Auto) Lymph % (Auto) [place] % (Auto) Eos % (Auto) Baso % (Auto) Neut # (Auto) Lymph # (Auto) [place] # (Auto) Eos # (Auto) Baso # (Auto) WBC Differential Differential Comment ESR PT INR APTT POC Sodium Sodium POC Potassium Potassium POC Chloride Chloride Carbon Dioxide Anion Gap POC BUN BUN Creatinine POC Creatinine Estimated GFR POC Glucose Random Glucose Calcium Total Creatine Kinase CK-MB (CK-2) Troponin I C-Reactive Protein 0.53 H Triglycerides Cholesterol LDL Cholesterol, Calc HDL Cholesterol Cholesterol/HDL Ratio - Imaging Impressions Head MRI 03/26/18 00:00 CONCLUSION: 1. No evidence of acute stroke. 2. Small bilateral thalamic lacunar infarcts. Head MRA 03/26/18 00:00 CONCLUSION: 1. Negative MRA Cow ([place]) non contrast. Head CT 03/26/18 17:29 CONCLUSION: Multiple lacunar infarcts the left thalamus, likely old. No acute intracranial findings identified. Report was called by Dr. Fitzgerald to Dr. Cheng at [phone]. Head CTA 03/26/18 17:29 CONCLUSION: Focal atherosclerotic disease of the mid right PE TEACHER. No proximal high-grade stenosis or occlusion. Report was called by Dr. Fitzgerald to Dr. Salguero at [phone]] Neck CTA 03/26/18 17:29 CONCLUSION: 1. Negative CTA of the carotids. Assessment and Plan - Assessment (1) Transient cerebral ischemia Code(s): G45.9 - Transient cerebral ischemic attack, unspecified Status: Acute (2) Amaurosis fugax of left eye Code(s): G45.3 - Amaurosis fugax Status: Acute - Plan 63-year-old male with a past medical history significant for diabetes mellitus, previous CVA, hypertension, hyperlipidemia and anemia presents to the emergency department for the evaluation of visual disturbances. The patient reports that upon waking yesterday he had difficulty seeing out of his left eye. He reports that it was as if a black curtain was obstructing his upper visual field. He also reports blurry vision in that eye. He has a history of diabetic retinopathy and is status post laser treatments and injections bilaterally, last completed on 02/18/18. The patient states the black curtain had lifted but complains of persistent blurriness. He has residual right-sided hand rn cardiac rehab strength weakness and numbness/tingling in the right upper and lower extremities from his previous CVA. Visual disturbance/history of CVA Head CT showed multiple old lacunar infarcts in the left thalamus without acute intracranial findings Head CTA shows focal atherosclerotic disease of the mid right PE TEACHER without high- grade stenosis or occlusion Neck CTA negative MRI small bilateral thalamic lacunar infarcts. Echo done EF 55-60% Lipid profile noted HgbA1c pending -Neurology consulted, appreciate recommendations. No acute stroke, recommends ophthalmology consult and risk factor reduction -Ophthalmology consulted-pending -continue Aspirin and statins -PT eval Diabetes mellitus -Holding home glimepiride and metformin -Sliding-scale insulin -Monitor blood glucose Hypertension/hyperlipidemia -continue home medications Renal insufficiency Patient reports that recent lab work with his primary care provider showed a new renal insufficiency Creatinine 1.36, no recent baseline for comparison -Monitor renal function -control risk factors, avoid nephrotoxic agents. Resume diabetic Symptoms resolved. Plan to dc today after evaluation by ophthalmology Code Status: Full code Discussed Condition With: RN, pt and , CM Discharge Planning: Poss dc today after neuro and ophth clears (1) Transient cerebral ischemia Qualifiers: Transient cerebral ischemia type: unspecified Qualified Code(s): G45.9 - Transient cerebral ischemic attack, unspecified
[2018-03-27 11:43] VITALS: O2SAT 97
[2018-03-27] MEDS: Sod Chloride 0.9% Inj 1,000 ML IV.CONT SCH (11:48)
--- NOTE | 2018-03-27 12:15 | P.CON ---
History of Present Illness Service: Ophthalmology Reason for Consult: transient vision loss OS Primary Care Provider: No Primary Care Physician History of Present Illness: 63-year-old male with a past medical history of diabetes mellitus, previous CVA , hypertension, hyperlipidemia presents to the ED for the evaluation of visual changes in the left eye. The patient reports that upon waking up yesterday morning he had difficulty seeing out of the top half of the left eye. He reports that it was as if a black curtain was obstructing his upper visual field. It gradually improved as the day progressed and today he states he is back to his baseline. is well known to me, as he is a patient of mine in my office - he has a history of severe proliferative diabetic retinopathy and has had multiple laser treatments and injections bilaterally by [facility] - Dr. Ramiro Weller). MRI head showed old lacunar infarcts, MRA head normal, CTA neck normal. [facility] - History History Provided By: Patient - Medical History Medical History: Medical History (Last Reviewed 03/27/18 @ 10:54 by Axel Schwartz) Anemia Diabetes Hx of completed stroke Hyperlipidemia Hypertension Right sided numbness - Surgical History Surgical History: Surgical History (Last Reviewed 03/27/18 @ 10:54 by Axel Schwartz) History of bone marrow biopsy History of carpal tunnel surgery - Family History Family History: Family History (Last Reviewed 03/27/18 @ 07:42 by Sean Cheng DO) Other Diabetes mellitus Liver cancer - Tobacco History Second Hand Smoke Exposure: No Tobacco Use In Past 30 Days: No Smoking Status: Never smoker - Alcohol History How Often Do You Have a Drink Containing Alcohol: 2 to 4 times a month - Travel History Recent Travel in the [place] Within the Last 8 Weeks: No Recent Travel Out of the Country Within the Last 8 Weeks: No - Immunization History Tetanus Immunization: Unsure Medications and Allergies Active Medications: Active Medications Amlodipine Besylate (Norvasc) 5 mg PO DAILY [facility] Last Admin: 03/27/18 09:18 Dose: 5 mg Aspirin (Aspirin) 325 mg PO DAILY [facility] Last Admin: 03/27/18 08:56 Dose: 325 mg Atorvastatin Calcium (Lipitor) 10 mg PO DAILY [facility] Last Admin: 03/27/18 09:18 Dose: 10 mg Dextrose (D50w Vial) 50 ml IV.PUSH UNSCH PRN PRN Reason: PER HYPOGLYCEMIA PROTOCOL Glucagon (Glucagon Inj) 1 mg OTHER PRN PRN PRN Reason: for Hypoglycemia Protocol Sodium Chloride (Ns Inj) 1,000 mls @ 70 mls/hr IV.CONT .[id number] [facility] Last Admin: 03/27/18 11:48 Dose: 70 mls/hr Insulin Aspart (Novolog Insulin Correctional Sugar Inj) 0 unit SQ ACHS [facility]; Protocol Last Admin: 03/27/18 08:53 Dose: 1 unit Pantoprazole Sodium (Protonix) 20 mg PO DAILY [facility] Last Admin: 03/27/18 08:56 Dose: 20 mg Sodium Chloride (Ns Flush) 2 ml IV.FLUSH PRN PRN PRN Reason: FLUSH AFTER USING IV ACCESS Allergies Allergy/AdvReac Type Severity Reaction Status Date / Time prednisone Allergy Intermediate unknown Verified 03/26/18 17:36 Home Medications Medication Instructions Recorded Confirmed Type amlodipine 5 mg PO DAILY 03/26/18 03/26/18 History aspirin 81 mg PO DAILY 03/26/18 03/26/18 History atorvastatin 10 mg PO DAILY 03/26/18 03/26/18 History glimepiride 2 mg PO QAM 03/26/18 03/26/18 History metformin 1,000 mg PO BID 03/26/18 03/26/18 History multivitamin 1 tab PO DAILY 03/26/18 03/26/18 History om 4-E-xefbo-grw-edbvi-luv-lip 1 cap PO DAILY 03/26/18 03/26/18 History [[place] 3-6-9] omeprazole 20 mg PO DAILY 03/26/18 03/26/18 History Physical Exam Vital signs: Vital Signs 03/26/18 17:25 03/26/18 17:35 03/26/18 17:42 Temperature 98.7 F Pulse Rate 92 H Respiratory Rate 15 Blood Pressure 212/100 H Pulse Oximetry 100 99 100 03/26/18 17:45 03/26/18 17:47 03/26/18 19:06 Temperature Pulse Rate 85 85 Respiratory Rate 15 20 Blood Pressure 139/76 172/81 H Pulse Oximetry 99 97 03/26/18 23:31 03/27/18 02:47 03/27/18 06:16 Temperature Pulse Rate 85 79 Respiratory Rate 16 12 Blood Pressure 146/82 H 162/88 H Pulse Oximetry 98 97 98 03/27/18 07:53 03/27/18 08:47 03/27/18 10:47 Temperature Pulse Rate 79 74 74 Respiratory Rate 18 18 18 Blood Pressure 147/76 H 129/78 155/76 H Pulse Oximetry 98 98 97 Intake & Output 03/26/18 03/27/18 03/27/18 18:59 06:59 18:59 Intake Total 1000 / 1000 Balance 1000 / 1000 Weight 84.9 kg Intake: IV 1000 / 1000 NS Inj 1,000 ML @ 70 mls/hr IV. 1000 / 1000 CONT .[id number] [facility] Rx#:[id number] - Detailed Eye Exam Comments: Va cc at near OD 20/50, OS 20/50 EOM full OU, no diplopia CVF full OU Pupils 2-1 no APD OU IOP normal to palpation OU Anterior exam OD - normal eyelid, C/S W&Q, K clear, AC deep, pupil round, lens clear OS - normal eyelid, C/S W&Q, K clear, AC deep, pupil round, lens clear Dilated exam deferred Results - Labs CBC & Chem 7: 03/27/18 07:16 03/27/18 07:16 Labs: Laboratory Results - last 24 hr 03/26/18 03/26/18 03/26/18 17:30 17:30 17:30 WBC 8.1 RBC 3.88 L Hgb 12.8 L POC Hgb (Calc) 12.6 L Hct 36.6 L POC Hct 37.0 L MCV 94.3 MCH 33.0 MCHC 35.0 RDW 13.4 Plt Count 227 MPV 10.3 Neut % (Auto) 54.6 Lymph % (Auto) 28.4 [place] % (Auto) 13.1 H Eos % (Auto) 3.0 Baso % (Auto) 0.9 Neut # (Auto) 4.4 Lymph # (Auto) 2.3 [place] # (Auto) 1.1 H Eos # (Auto) 0.2 Baso # (Auto) 0.1 WBC Differential . Differential Comment Auto diff final ESR PT 10.2 INR 1.0 APTT 24.1 POC Sodium 144 Sodium 143 POC Potassium 4.6 Potassium 4.5 POC Chloride 105 Chloride 108 H Carbon Dioxide 24.3 Anion Gap 11 POC BUN 27 H BUN 25 H Creatinine 1.36 H POC Creatinine 1.2 Estimated GFR 53 L POC Glucose 270 H Random Glucose 275 H Calcium 9.2 Total Creatine Kinase 127 CK-MB (CK-2) 5.0 H Troponin I Less than 0.02 L C-Reactive Protein Triglycerides Cholesterol LDL Cholesterol, Calc HDL Cholesterol Cholesterol/HDL Ratio 03/27/18 03/27/18 03/27/18 07:16 07:16 07:16 WBC 8.1 RBC 3.55 L Hgb 11.4 L POC Hgb (Calc) Hct 33.1 L POC Hct MCV 93.3 MCH 32.2 MCHC 34.5 RDW 13.7 Plt Count 202 MPV 10.1 Neut % (Auto) 51.9 Lymph % (Auto) 29.3 [place] % (Auto) 13.6 H Eos % (Auto) 4.0 Baso % (Auto) 1.2 Neut # (Auto) 4.2 Lymph # (Auto) 2.4 [place] # (Auto) 1.1 H Eos # (Auto) 0.3 Baso # (Auto) 0.1 WBC Differential . Differential Comment Auto diff final ESR 36 H PT INR APTT POC Sodium Sodium 141 POC Potassium Potassium 4.2 POC Chloride Chloride 108 H Carbon Dioxide 25.1 Anion Gap 8 POC BUN BUN 23 H Creatinine 1.19 POC Creatinine Estimated GFR 62 L POC Glucose Random Glucose 160 H D Calcium 8.3 L D Total Creatine Kinase CK-MB (CK-2) Troponin I C-Reactive Protein Triglycerides 238 H Cholesterol 150 LDL Cholesterol, Calc 69 HDL Cholesterol 33.1 L Cholesterol/HDL Ratio 4.53 03/27/18 07:16 WBC RBC Hgb POC Hgb (Calc) Hct POC Hct MCV MCH MCHC RDW Plt Count MPV Neut % (Auto) Lymph % (Auto) [place] % (Auto) Eos % (Auto) Baso % (Auto) Neut # (Auto) Lymph # (Auto) [place] # (Auto) Eos # (Auto) Baso # (Auto) WBC Differential Differential Comment ESR PT INR APTT POC Sodium Sodium POC Potassium Potassium POC Chloride Chloride Carbon Dioxide Anion Gap POC BUN BUN Creatinine POC Creatinine Estimated GFR POC Glucose Random Glucose Calcium Total Creatine Kinase CK-MB (CK-2) Troponin I C-Reactive Protein 0.53 H Triglycerides Cholesterol LDL Cholesterol, Calc HDL Cholesterol Cholesterol/HDL Ratio - Imaging Impressions Head MRI 03/26/18 00:00 CONCLUSION: 1. No evidence of acute stroke. 2. Small bilateral thalamic lacunar infarcts. Head MRA 03/26/18 00:00 CONCLUSION: 1. Negative MRA [place] ([place]) non contrast. Head CT 03/26/18 17:29 CONCLUSION: Multiple lacunar infarcts the left thalamus, likely old. No acute intracranial findings identified. Report was called by Dr. Fitzgerald to Dr. Cheng at [phone]. Head CTA 03/26/18 17:29 CONCLUSION: Focal atherosclerotic disease of the mid right COMMERCIAL SHRIMPING CAPTAIN. No proximal high-grade stenosis or occlusion. Report was called by Dr. Fitzgerald to Dr. Salguero at [phone]] Neck CTA 03/26/18 17:29 CONCLUSION: 1. Negative CTA of the carotids. Assessment and Plan - Assessment (1) Amaurosis fugax of left eye Code(s): G45.3 - Amaurosis fugax Status: Acute Plan: Negative ROS for GCA. Could be impending central retinal vein occlusion. Recommend controlling risk factors - diabetes, hypertension, hyperlipidemia. Patient to follow up with Dr. Ramiro Weller ([facility]) on 04/01/18 at 7: 40 am.
--- NOTE | 2018-03-27 12:43 | ECHRPT ---
Indication: CVA/TIA CONCLUSIONS Normal left ventricular size. Mild concentric left ventricular hypertrophy. The left ventricular systolic function is normal with an estimated ejection fraction in the range of 55-60%. Trace mitral valve regurgitation. There is trace tricuspid valve regurgitation. The estimated pulmonary arterial pressure is 40 mmHg. Trivial pulmonary valve regurgitation. BP: / HR: Rhythm: MEASUREMENTS (Male / Female) Normal Values Technical Quality:Good 2D ECHO LV Diastolic Diameter PLAX 4.3 cm 4.2 - 5.9 / 3.9 - 5.3 cm LV Systolic Diameter PLAX 3.0 cm IVS Diastolic Thickness 1.2 cm 0.6 - 1.0 / 0.6 - 0.9 cm LVPW Diastolic Thickness 1.2 cm 0.6 - 1.0 / 0.6 - 0.9 cm LV Relative Wall Thickness 0.5 RV Internal Dim ED PLAX 2.8 cm LVOT Diameter 2.3 cm Aortic Root Diameter 3.5 cm LA Systolic Diameter LX 3.6 cm 3.0 - 4.0 / 2.7 - 3.8 cm M-MODE AV Cusp Separation MM 1.8 cm DOPPLER AV Peak Velocity 128.0 cm/s AV Peak Gradient 6.6 mmHg LVOT Peak Velocity 101.0 cm/s LVOT Peak Gradient 4.1 mmHg AV Area Cont Eq pk 3.3 cm Mitral E Point Velocity 114.0 cm/s Mitral A Point Velocity 123.0 cm/s Mitral E to A Ratio 0.9 LV E' Lateral Velocity 8.8 cm/s Mitral E to LV E' Lateral Ratio 13.0 LV E' Septal Velocity 9.1 cm/s Mitral E to LV E' Septal Ratio 12.6 TR Peak Velocity 273.0 cm/s TR Peak Gradient 29.8 mmHg Right Atrial Pressure 10.0 mmHg Pulmonary Artery Systolic Pressu 39.8 mmHg Right Ventricular Systolic Press 39.8 mmHg PV Peak Velocity 88.3 cm/s PV Peak Gradient 3.1 mmHg FINDINGS LEFT VENTRICLE Normal left ventricular size. Mild concentric left ventricular hypertrophy. The left ventricular systolic function is normal with an estimated ejection fraction in the range of 55-60%. RIGHT VENTRICLE Normal right ventricular size and systolic function. LEFT ATRIUM The left atrial size is normal. RIGHT ATRIUM The right atrial size is normal. ATRIAL SEPTUM Normal atrial septal thickness without atrial level shunting by limited color doppler interrogation. AORTA The aortic root and proximal ascending aorta are normal in size on limited imaging. MITRAL VALVE Trace mitral valve regurgitation. AORTIC VALVE Trileaflet aortic valve. No aortic valve stenosis or regurgitation. TRICUSPID VALVE There is trace tricuspid valve regurgitation. The estimated pulmonary arterial pressure is 40 mmHg. PULMONARY VALVE Trivial pulmonary valve regurgitation. VESSELS The inferior vena cava is normal in size. PERICARDIUM No pericardial effusion. Jair Montesinos MD, FACC (Electronically Signed) Final Date:27 March 2018 12:42
[2018-03-27 14:06] VITALS: BP 127/68; PULSE 78
[2018-03-27 14:21] LABS: Hemoglobin A1c 7.9 % (4.3-6.0)
--- NOTE | 2018-03-27 14:34 | ECG ---
Date Performed: 03/26/2018 Time Performed: 18:02:49 PTAGE: 63 years EKG: Sinus rhythm POSSIBLE RIGHT VENTRICULAR CONDUCTION DELAY BORDERLINE ECG Since the PREVIOUS TRACING , no significant change noted PREVIOUS TRACING DOCTOR: Catrachita Sifuentes Interpretating Date/Time 03/27/2018 14:28:31
== END 2018-03-27 14:07 | disposition home or self-care (01) ==
LOC: NEPC 17:18 → NEDA 19:17 → INTOOBSV 19:17 → NEDH 03-27 01:44
PROVIDERS: ADMIT Internal Medicine; ATTEND Internal Medicine